=== PATIENT | male | born 1990 | race Caucasian/White ===

== ENCOUNTER 2017-09-23 08:38 | Emergency (ER) | payer SELFPAY ==
[~2017-09-23] VITALS: Ht 170.2 cm; Wt 82.0 kg
[2017-09-23] MEDS ORDERED: IBUPROFEN 600MG TABLET PO ONE (11:30)
[2017-09-23 11:41] VITALS: BP 100/53
== END 2017-09-23 11:58 | disposition home or self-care (01) ==
LOC: ER 08:38
DX: R05 Cough (principal); R50.9 Fever, unspecified
CPT/HCPCS: 71010; 99283

== ENCOUNTER 2019-08-16 23:26 | Emergency (ER) | payer SELFPAY ==
[~2019-08-16] VITALS: Ht 175.3 cm; Wt 99.1 kg
[2019-08-17] MEDS ORDERED: PREDNISONE 20MG TABLET PO ONE (04:30)
[2019-08-17 05:29] VITALS: BP 101/68
== END 2019-08-17 05:31 | disposition home or self-care (01) ==
LOC: ER 23:26
DX: L25.9 Unspecified contact dermatitis, unspecified cause (principal); J45.909 Unspecified asthma, uncomplicated; F17.210 Nicotine dependence, cigarettes, uncomplicated; Z91.013 Allergy to seafood
CPT/HCPCS: 99283; J7512